=== PATIENT | male | born 1985 ===

== ENCOUNTER 2021-09-10 16:08 | Emergency (ER) | payer OTHER ==
[~2021-09-10] VITALS: Ht 172.7 cm; Wt 77.1 kg
[~2021-09-10 16:08] MED LIST: ZITHROMAX TRI-500 MG PO
[2021-09-10] MEDS ORDERED: AMOX1TAB5 PO (18:43)
== END 2021-09-10 20:11 | disposition home or self-care (01) ==
LOC: ER 16:08
DX: H01.003 Unspecified blepharitis right eye, unspecified eyelid (principal); Z88.6 Allergy status to analgesic agent; Z91.013 Allergy to seafood